=== PATIENT | male | born 1950 | race Caucasian/White ===

== ENCOUNTER 2022-10-21 12:19 | Inpatient (IN) ==
[2022-10-21] MEDS ORDERED: Lidocaine 2% JELLY 6 ML Topical TOPICAL ONE (12:46)
[2022-10-21] MEDS ORDERED: Nicotine PATCH 14 MG/24 HR PATCH TRANSDERM ONE (14:07)
[2022-10-21] MEDS ORDERED: Piperacillin/Tazobac ADVAN 3.375 GM in NS 0.9% 100 ml BAG 100 ML IV ONE (14:47)
[2022-10-21] MEDS ORDERED: Zosyn per Pharmacy NOTE FOLLOW UP SCH (15:00)
[2022-10-21] MEDS ORDERED: fentaNYL 100 mcg/2 ml 50 MCG/ML VIAL IV SLOW PU ONE (15:10)
[2022-10-21] MEDS ORDERED: Naloxone 0.4 mg VIAL 0.4 mg/ml 1 ml VIAL IV PUSH PRN (15:10)
[2022-10-21] MEDS ORDERED: Flumazenil 0.5 mg/5 ml 0.1 MG/ML 5 ml VIAL IV PRN (15:10)
[2022-10-21] MEDS ORDERED: Midazolam 10 mg/10 ml VIAL 1 mg/ml 10 ml VIAL (10 mg) IV SLOW PU ONE (15:10)
[2022-10-21] MEDS ORDERED: fentaNYL 100 mcg/2 ml 50 MCG/ML VIAL ONE (15:37)
[2022-10-21] MEDS ORDERED: Midazolam 2 mg/2 ml VIAL 1 mg/ml 2 ml VIAL (2 mg) ONE (15:37)
[2022-10-21] MEDS ORDERED: Ondansetron 4 mg VIAL 2 MG/ML 2 ml VIAL ONE (17:13)
[2022-10-21] MEDS ORDERED: Morphine 2 MG/ML SYRINGE ONE (17:13)
[2022-10-21] MEDS: Morphine 2 MG/ML SYRINGE IV PRN (17:15)
[2022-10-21] MEDS: Ondansetron 4 mg VIAL 2 MG/ML 2 ml VIAL IV PRN (17:17)
[2022-10-21] MEDS ORDERED: Nicotine PATCH 14 MG/24 HR PATCH ONE (17:27)
[2022-10-21] MEDS ORDERED: Enoxaparin 40 MG/0.4 ML SYR ONE (17:27)
[2022-10-21] MEDS: Enoxaparin 40 MG/0.4 ML SYR SUBCUT SCH (17:29)
[2022-10-21] MEDS ORDERED: oxyCODONE/Acetamin 5/325 mg TAB ONE (18:08)
[2022-10-21 18:17] LABS: Creatinine, Serum 0.92 mg/dL (0.67-1.17); eGFR CKD-EPI 88.4 (>60)
[2022-10-21] MEDS ORDERED: oxyCODONE/Acetamin 5/325 mg TAB PO PRN ×2 (18:49→18:50)
[2022-10-21] MEDS: NS 0.45% KCl 20 Meq 1000 ml 1,000 ML IV SCH (18:59)
[2022-10-21] MEDS: ZOSYN 3.375 GM Q8H per EXTENDED INFUSION IV SCH (22:07)
[2022-10-22] MEDS: Ondansetron 4 mg VIAL 2 MG/ML 2 ml VIAL IV PRN (03:17)
[2022-10-22] MEDS: Morphine 2 MG/ML SYRINGE IV PRN (03:28)
[2022-10-22] MEDS ORDERED: Morphine 2 MG/ML SYRINGE IV ONE (04:00)
[2022-10-22] MEDS ORDERED: Morphine 2 MG/ML SYRINGE ONE (04:04)
[2022-10-22] MEDS ORDERED: Scopolamine 1 mg/72hr PATCH ONE (04:22)
[2022-10-22] MEDS: Scopolamine 1 mg/72hr PATCH TRANSDERM SCH (04:24)
[2022-10-22 05:56] LABS: ABS Basophils 0.1 10^3/uL (0.0-0.1); ABS Lymphocytes 1.8 10^3/uL (1.0-4.8); ABS Monocytes 0.7 10^3/uL (0.0-1.1); ABS Neutrophils 11.8 10^3/uL (1.5-7.6); ABS Nucleated RBC 0.01 10^3/ul; Hematocrit 40.4 % (38-53); Hemoglobin 13.4 g/dL (13.2-16.3); Lymphocyte % 12.3 %; Mean Corpuscular Hgb Conc 33.1 g/dL (31-36); Mean Corpuscular Volume 87.7 fL (80-97); Mean Platelet Volume 7.1 fL (7.5-11.2); Nucleated Red Blood Cells % 0.1 /100 WBC (0.0-0.4); Platelet Count 318 10^3/uL (150-450); Red Blood Count 4.61 10^6/uL (4.06-5.63); Red Cell Distribution Width 14.9 % (12-17); White Blood Count 14.4 10^3/uL (3.6-10.2)
[2022-10-22 06:31] LABS: CO2 Carbon Dioxide 21 mmol/L (22-32); Chloride 103 mmol/L (101-111); Magnesium 1.8 mg/dL (1.9-2.7); Sodium 132 mmol/L (135-145)
[2022-10-22 06:34] LABS: Anion Gap 8 mmol/L (2-11)
[2022-10-22] MEDS: ZOSYN 3.375 GM Q8H per EXTENDED INFUSION IV SCH ×3 (06:35→20:47)
[2022-10-22 06:37] LABS: Blood Urea Nitrogen 15 mg/dL (6-24); C Reactive Protein 204.14 mg/L (<8.01); Creatinine, Serum 1.01 mg/dL (0.67-1.17); Glucose 121 mg/dL (70-100)
[2022-10-22 06:43] LABS: Potassium, Whole Blood 3.6 mmol/L (3.4-4.5)
[2022-10-22] MEDS ORDERED: Magnesium Sulfate IV 1GM/100ML 1 GM/100 ML BAG IV ONE (07:10)
[2022-10-22] MEDS ORDERED: fentaNYL 100 mcg/2 ml 50 MCG/ML VIAL IV SLOW PU PRN (07:35)
[2022-10-22] MEDS ORDERED: oxyCODONE/Acetamin 5/325 mg TAB PO PRN (07:39)
[2022-10-22] MEDS: oxyCODONE/Acetamin 5/325 mg TAB PO PRN ×2 (08:43→15:54)
[2022-10-22] MEDS: fentaNYL 100 mcg/2 ml 50 MCG/ML VIAL IV SLOW PU PRN (08:44)
[2022-10-22] MEDS: NS 0.45% KCl 20 Meq 1000 ml 1,000 ML IV SCH (09:06)
[2022-10-22] MEDS ORDERED: Metoprolol Tartrate 5 mg VIAL 5 ml VIAL (1 mg/ml) IV ONE (09:15)
[2022-10-22] MEDS ORDERED: Metoprolol Tartrate 5 mg VIAL 5 ml VIAL (1 mg/ml) ONE (09:21)
[2022-10-22] MEDS: Enoxaparin 40 MG/0.4 ML SYR SUBCUT SCH (15:46)
[2022-10-22] MEDS: Pantoprazole VIAL 40 MG VIAL IV SCH (18:38)
[2022-10-23] MEDS: NS 0.45% KCl 20 Meq 1000 ml 1,000 ML IV SCH ×2 (03:45→17:37)
[2022-10-23] MEDS: oxyCODONE/Acetamin 5/325 mg TAB PO PRN ×3 (03:52→17:40)
[2022-10-23] MEDS: ZOSYN 3.375 GM Q8H per EXTENDED INFUSION IV SCH ×3 (05:19→21:29)
[2022-10-23] MEDS ORDERED: Buffered Lidocaine 1% SYRIN 1 ml INTRADERM ONE (06:00)
[2022-10-23] MEDS ORDERED: Lactated Ringers 1000 ml BAG 1,000 ML IV SCH (06:00)
[2022-10-23] MEDS: Ondansetron 4 mg VIAL 2 MG/ML 2 ml VIAL IV PRN ×2 (06:44→17:54)
[2022-10-23 07:28] LABS: ABS Lymphocytes 1.4 10^3/uL (1.0-4.8); ABS Monocytes 0.5 10^3/uL (0.0-1.1); ABS Neutrophils 9.9 10^3/uL (1.5-7.6); Eosinophil % 0.1 %; Hematocrit 40.1 % (38-53); Hemoglobin 13.4 g/dL (13.2-16.3); Lymphocyte % 11.5 %; Mean Corpuscular Hemoglobin 29.7 pg (27-33); Mean Corpuscular Hgb Conc 33.4 g/dL (31-36); Mean Corpuscular Volume 88.9 fL (80-97); Mean Platelet Volume 7.2 fL (7.5-11.2); Platelet Count 316 10^3/uL (150-450); Red Blood Count 4.51 10^6/uL (4.06-5.63); Red Cell Distribution Width 14.8 % (12-17); White Blood Count 11.8 10^3/uL (3.6-10.2)
[2022-10-23] MEDS ORDERED: Lactated Ringers 1000 ml BAG 1,000 ML IV ONE (07:40)
[2022-10-23] MEDS ORDERED: Digoxin IV 0.5 MG/2 ML AMP (0.25 MG/ML) IV SLOW PU ONE ×2 (07:42→13:14)
[2022-10-23 08:12] LABS: Creatinine, Serum 1.01 mg/dL (0.67-1.17); Magnesium 2.1 mg/dL (1.9-2.7); Potassium 4.3 mmol/L (3.5-5.0)
[2022-10-23] MEDS: fentaNYL 100 mcg/2 ml 50 MCG/ML VIAL IV SLOW PU PRN ×2 (09:16→15:09)
[2022-10-23] MEDS ORDERED: Prochlorperazine 5 mg/ml 2 ml VIAL (10 mg) IV PRN (10:05)
[2022-10-23 10:18] LABS: C Reactive Protein 433.72 mg/L (<8.01)
[2022-10-23] MEDS ORDERED: Metoprolol Tartrate 5 mg VIAL 5 ml VIAL (1 mg/ml) IV ONE (15:59)
[2022-10-23] MEDS: Pantoprazole VIAL 40 MG VIAL IV SCH (17:37)
[2022-10-23] MEDS ORDERED: Iohexol 350 (CONTRAST) 500 ML MDV IV ONE (18:03)
[2022-10-23] MEDS: Digoxin IV 0.5 MG/2 ML AMP (0.25 MG/ML) IV SLOW PU SCH (20:39)
[2022-10-23] MEDS ORDERED: fentaNYL 100 mcg/2 ml 50 MCG/ML VIAL IV PRN (20:46)
[2022-10-23] MEDS ORDERED: Naloxone 0.4 mg VIAL 0.4 mg/ml 1 ml VIAL IV PRN (20:46)
[2022-10-23] MEDS ORDERED: Lidocaine 2% PF 5 ML VIAL ONE (20:58)
[2022-10-23] MEDS ORDERED: Etomidate 20 mg/10 ml 2 MG/ML 10 ml VIAL ONE (20:58)
[2022-10-23] MEDS ORDERED: Propofol 10 MG/ML 20 ML BTL ONE (20:58)
[2022-10-23] MEDS ORDERED: Midazolam 2 mg/2 ml VIAL 1 mg/ml 2 ml VIAL (2 mg) ONE (20:59)
[2022-10-23] MEDS ORDERED: fentaNYL 100 mcg/2 ml 50 MCG/ML VIAL ONE ×2 (20:59→22:09)
[2022-10-23] MEDS ORDERED: Rocuronium 50 mg VIAL 10 mg/ml 5 ml VIAL (50 mg) ONE (20:59)
[2022-10-23] MEDS ORDERED: Bupivacaine 0.25% EPI 200,000 30 ML SDV ONE (21:10)
[2022-10-23] MEDS ORDERED: Piperacillin/Tazobac 3.375 GM BAG ONE (21:12)
[2022-10-23] MEDS ORDERED: Phenylephrine 40 mcg/mL 10mL (400mcg) SYRINGE ONE (21:46)
[2022-10-23] MEDS ORDERED: Ondansetron 4 mg VIAL 2 MG/ML 2 ml VIAL ONE (21:49)
[2022-10-23] MEDS ORDERED: Dexamethasone IV 4 MG/ML VIAL 1 ml VIAL ONE (21:49)
[2022-10-24] MEDS: NS 0.45% KCl 20 Meq 1000 ml 1,000 ML IV SCH (01:33)
[2022-10-24] MEDS: oxyCODONE/Acetamin 5/325 mg TAB PO PRN (01:37)
[2022-10-24] MEDS: Digoxin IV 0.5 MG/2 ML AMP (0.25 MG/ML) IV SLOW PU SCH (02:03)
[2022-10-24] MEDS: ZOSYN 3.375 GM Q8H per EXTENDED INFUSION IV SCH ×3 (04:58→21:11)
[2022-10-24] MEDS: NS 0.9% 1000 ml BAG 1,000 ML IV SCH (13:13)
[2022-10-24] MEDS: Enoxaparin 40 MG/0.4 ML SYR SUBCUT SCH (13:32)
[2022-10-24] MEDS: Pantoprazole VIAL 40 MG VIAL IV SCH (16:08)
[2022-10-25] MEDS: Scopolamine 1 mg/72hr PATCH TRANSDERM SCH (04:10)
[2022-10-25] MEDS: ZOSYN 3.375 GM Q8H per EXTENDED INFUSION IV SCH ×3 (05:05→22:51)
[2022-10-25 06:01] LABS: Hematocrit 37.4 % (38-53); Hemoglobin 12.5 g/dL (13.2-16.3); Mean Corpuscular Hemoglobin 29.3 pg (27-33); Mean Corpuscular Hgb Conc 33.5 g/dL (31-36); Mean Corpuscular Volume 87.5 fL (80-97); Mean Platelet Volume 6.8 fL (7.5-11.2); Platelet Count 437 10^3/uL (150-450); Red Blood Count 4.28 10^6/uL (4.06-5.63); Red Cell Distribution Width 14.5 % (12-17); White Blood Count 16.5 10^3/uL (3.6-10.2)
[2022-10-25 06:33] LABS: Albumin 2.6 g/dL (3.2-5.2); Albumin/Globulin Ratio 1.2 (1-3); Creatinine, Serum 0.76 mg/dL (0.67-1.17); Globulin 2.2 g/dL (2-4); Potassium 4.1 mmol/L (3.5-5.0); Total Bilirubin 0.4 mg/dL (0.2-1.0); Total Protein 4.8 g/dL (6.4-8.9); eGFR CKD-EPI 95.5 (>60)
[2022-10-25 07:20] LABS: ABS Lymphocytes 1.7 10^3/uL (1.0-4.8); ABS Monocytes 1.1 10^3/uL (0.0-1.1); ABS Neutrophils 13.7 10^3/uL (1.5-7.6); Eosinophil % 0.1 %; Lymphocyte % 10.2 %
[2022-10-25] MEDS: Enoxaparin 40 MG/0.4 ML SYR SUBCUT SCH (09:13)
[2022-10-25] MEDS: NS 0.9% 1000 ml BAG 1,000 ML IV SCH (13:40)
[2022-10-25] MEDS: Pantoprazole VIAL 40 MG VIAL IV SCH (17:25)
[2022-10-25] MEDS: Polyethylene Glycol 3350 17 GM PACKET PO SCH (22:35)
[2022-10-25] MEDS ORDERED: Haloperidol 5 mg/ml SDV IV/IM 5 MG/ML AMP IM ONE (23:00)
[2022-10-25] MEDS ORDERED: Haloperidol 5 mg/ml SDV IV/IM 5 MG/ML AMP IV SLOW PU ONE (23:23)
[2022-10-26] MEDS ORDERED: Haloperidol 5 mg/ml SDV IV/IM 5 MG/ML AMP IM ONE (04:04)
[2022-10-26] MEDS ORDERED: Lorazepam PYXIS KEY PRN (04:55)
[2022-10-26] MEDS ORDERED: LORazepam 2 mg VIAL 1 ml IV PUSH ONE (04:55)
[2022-10-26] MEDS: ZOSYN 3.375 GM Q8H per EXTENDED INFUSION IV SCH ×3 (05:42→23:15)
[2022-10-26 05:54] LABS: Hematocrit 39.3 % (38-53); Hemoglobin 13.1 g/dL (13.2-16.3); Mean Corpuscular Hemoglobin 28.8 pg (27-33); Mean Corpuscular Hgb Conc 33.4 g/dL (31-36); Mean Corpuscular Volume 86.1 fL (80-97); Mean Platelet Volume 7.1 fL (7.5-11.2); Platelet Count 478 10^3/uL (150-450); Red Blood Count 4.57 10^6/uL (4.06-5.63); White Blood Count 17.4 10^3/uL (3.6-10.2)
[2022-10-26 06:11] LABS: ABS Basophils 0.1 10^3/uL (0.0-0.1); ABS Lymphocytes 1.9 10^3/uL (1.0-4.8); ABS Monocytes 1.6 10^3/uL (0.0-1.1); ABS Neutrophils 13.8 10^3/uL (1.5-7.6); ABS Nucleated RBC 0.03 10^3/ul; Eosinophil % 0.2 %; Lymphocyte % 11.1 %; Nucleated Red Blood Cells % 0.1 /100 WBC (0.0-0.4)
[2022-10-26 06:12] LABS: Albumin/Globulin Ratio 1.2 (1-3); Calcium 8.6 mg/dL (8.6-10.3); Creatinine, Serum 0.63 mg/dL (0.67-1.17); Globulin 2.5 g/dL (2-4); Potassium 4.3 mmol/L (3.5-5.0); Total Bilirubin 0.6 mg/dL (0.2-1.0); Total Protein 5.5 g/dL (6.4-8.9); eGFR CKD-EPI 101.1 (>60)
[2022-10-26] MEDS ORDERED: Morphine 2 MG/ML SYRINGE IV PRN (08:02)
[2022-10-26] MEDS: Metoprolol Tartrate 5 mg VIAL 5 ml VIAL (1 mg/ml) IV SCH ×3 (08:46→20:43)
[2022-10-26] MEDS ORDERED: Lactated Ringers 1000 ml BAG 1,000 ML IV SCH (09:00)
[2022-10-26] MEDS ORDERED: Iohexol 350 (CONTRAST) 500 ML MDV IV ONE (10:00)
[2022-10-26] MEDS: Acetaminophen IV 1 GM/100ML 1,000 MG/100 ML BAG IV SCH ×3 (10:18→22:45)
[2022-10-26] MEDS: Polyethylene Glycol 3350 17 GM PACKET PO SCH ×2 (10:42→22:45)
[2022-10-26] MEDS: Enoxaparin 40 MG/0.4 ML SYR SUBCUT SCH (11:14)
[2022-10-26] MEDS ORDERED: Haloperidol 5 mg/ml SDV IV/IM 5 MG/ML AMP IV SLOW PU PRN (14:49)
[2022-10-26] MEDS ORDERED: Magnesium Hydroxide LIQ 30 ML UDC PO PRN (14:53)
[2022-10-26] MEDS: Pantoprazole VIAL 40 MG VIAL IV SCH (18:49)
[2022-10-26] MEDS ORDERED: Enoxaparin 100 MG/ML SYR SUBCUT SCH (23:00)
[2022-10-26 23:47] VITALS: BP 148/83
== END 2022-10-27 00:07 | disposition short-term general hospital (02) | DRG 339 ==
LOC: ED 12:19 → EDHOLD 14:37 → SUATTDRO 14:37 → EDHOLD 16:46 → SSU 17:23 → MEDTELE 10-23 07:34
PROVIDERS: ADMIT Internal Medicine; ATTEND Internal Medicine